=== PATIENT | female | born 2000 | race Caucasian/White ===

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

== ENCOUNTER 2020-10-30 09:52 | Emergency (ER) | payer BC ==
[~2020-10-30] VITALS: Ht 162 cm; Wt 104.3 kg
[2020-10-30] MEDS ORDERED: KETOROLAC 30 MG/ML VIAL IVP STA (10:01)
[2020-10-30] MEDS ORDERED: fentaNYL INJ 100 MCG/2 ML AMP IVP STA (10:01)
[2020-10-30] MEDS ORDERED: LACTATED RINGERS 1,000 ML IV ONE (10:15)
[2020-10-30 10:19] LABS: BASOPHILS # (AUTO) 0.1 10^3/uL (0.0-0.1); BASOPHILS % (AUTO) 1 % (0-10); EOSINOPHILS # (AUTO) 0.2 10^3/uL (0.0-0.3); EOSINOPHILS % (AUTO) 2 % (0-10); HEMATOCRIT 40 % (35-52); HEMOGLOBIN 12.8 g/dL (11.5-16.0); LYMPHOCYTES % (AUTO) 36 % (12-44); MEAN CORPUSCULAR HEMOGLOBIN 30 pg (25-34); MEAN CORPUSCULAR HGB CONC 32 g/dL (32-36); MEAN CORPUSCULAR VOLUME 94 fL (80-99); MEAN PLATELET VOLUME 10.1 fL (9.0-12.2); MONOCYTES # (AUTO) 0.6 10^3/uL (0.0-1.0); MONOCYTES % (AUTO) 5 % (0-12); NEUTROPHILS # (AUTO) 6.2 10^3/uL (1.8-7.8); NEUTROPHILS % (AUTO) 56 % (42-75); PLATELET COUNT 275 10^3/uL (130-400)
--- NOTE | 2020-10-30 10:26 | ED Back Pain ---
General Chief Complaint: Back Problems Stated Complaint: BACK PAIN Source of Information: Patient Exam Limitations: No Limitations History of Present Illness Date Seen by Provider: Oct 30, 2020 Time Seen by Provider: 09:58 Initial Comments Here with report of severe left flank pain that started acutely within the last hour. She has been dealing with a kidney infection this week and has been treating that with drinking more water and drinking cranberry juice. States she believes she had a kidney infection because she was feeling like she had to pee but could not or was and felt like that was happening often. States that she has had kidney stones in the past but has never felt like this. Denies possibility of because they use condoms. Last menstrual period was 1 month ago when she is due currently. Denies nausea, vomiting, fever or other problems. Location: Other (Left flank) Timing/Duration: 1 Hour Severity: Severe Pain/Injury Location: Back Radiation: Other (Left groin) Method of Injury: Unknown Associated Symptoms: No fever, No lower back pain, No loss of bladder control, No loss of bowel control Allergies and Home Medications Allergies Coded Allergies: doxycycline (Verified Allergy, Unknown, 10/30/20) peanut (Verified Allergy, Unknown, 10/30/20) Patient Home Medication List Home Medication List Reviewed: Yes Review of Systems Constitutional: see HPI, chills, fever EENTM: No nose congestion, No throat pain Respiratory: No cough, No short of breath Cardiovascular: no symptoms reported Gastrointestinal: abdominal pain; No nausea, No vomiting Genitourinary: dysuria, frequency, hesitancy Musculoskeletal: back pain; No muscle pain Skin: no symptoms reported Psychiatric/Neurological: Anxiety All Other Systems Reviewed Negative Unless Noted: Yes Past Gmcpwmm-Jfhqfx-Kewilm Hx Past Med/Social Hx: Reviewed Nursing Past Med/Soc Hx Patient Social History Alcohol Use: Denies Use Smoking Status: Never a Smoker Past Medical History Surgeries: No Respiratory: No Cardiac: No Neurological: No : No Genitourinary: Yes Kidney Infection, Kidney Stones Gastrointestinal: No Musculoskeletal: No Cancer: No Psychosocial: Yes Anxiety, Personality Disorder, Depression Family Medical History Reviewed Nursing Family Hx No Pertinent Family Hx Physical Exam Vital Signs Vital Signs - First Documented 10/30/20 09:56 Temp 36.2 Pulse 125 Resp 20 B/P (MAP) 102/87 (92) Pulse Ox 100 Capillary Refill : Height, Weight, BMI Height: '" Weight: lbs. oz. kg; BMI Method: General Appearance: WD/WN, Moderate Distress HEENT: PERRL/EOMI, Pharynx Normal Neck: Non Tender, Supple Cardiovascular: No Murmur, Tachycardia Respiratory: Lungs Clear, Normal Breath Sounds Gastrointestinal: Non Tender, Soft Back: No Vertebral Tenderness, CVA Tenderness (L); No CVA Tenderness (R) Extremity: Normal Inspection, Normal Range of Motion, Non Tender, No Calf Tenderness, No Pedal Edema Neurologic/Psychiatric: Alert, Oriented x3 Skin: Normal Color, Warm/Dry Progress/Results/Core Measures Results/Orders Lab Results Laboratory Tests Test 10/30/20 10:10 10/30/20 10:38 Range/Units White Blood Count 11.0 4.3-11.0 10^3/uL Red Blood Count 4.30 3.80-5.11 10^6/uL Hemoglobin 12.8 11.5-16.0 g/dL Hematocrit 40 35-52 % Mean Corpuscular Volume 94 80-99 fL Mean Corpuscular Hemoglobin 30 25-34 pg Mean Corpuscular Hemoglobin Concent 32 32-36 g/dL Red Cell Distribution Width 12.5 10.0-14.5 % Platelet Count 275 130-400 10^3/uL Mean Platelet Volume 10.1 9.0-12.2 fL Immature Granulocyte % (Auto) 1 % Neutrophils (%) (Auto) 56 42-75 % Lymphocytes (%) (Auto) 36 12-44 % Monocytes (%) (Auto) 5 0-12 % Eosinophils (%) (Auto) 2 0-10 % Basophils (%) (Auto) 1 0-10 % Neutrophils # (Auto) 6.2 1.8-7.8 10^3/uL Lymphocytes # (Auto) 4.0 1.0-4.0 10^3/uL Monocytes # (Auto) 0.6 0.0-1.0 10^3/uL Eosinophils # (Auto) 0.2 0.0-0.3 10^3/uL Basophils # (Auto) 0.1 0.0-0.1 10^3/uL Immature Granulocyte # (Auto) 0.1 0.0-0.1 10^3/uL Sodium Level 137 135-145 MMOL/L Potassium Level 3.6 3.6-5.0 MMOL/L Chloride Level 103 98-107 MMOL/L Carbon Dioxide Level 22 21-32 MMOL/L Anion Gap 12 5-14 MMOL/L Blood Urea Nitrogen 12 7-18 MG/DL Creatinine 0.78 0.60-1.30 MG/DL Estimat Glomerular Filtration Rate > 60 BUN/Creatinine Ratio 15 Glucose Level 124 H 70-105 MG/DL Calcium Level 8.7 8.5-10.1 MG/DL Corrected Calcium 8.5 8.5-10.1 MG/DL Total Bilirubin 0.3 0.1-1.0 MG/DL Aspartate Amino Transf (AST/SGOT) 13 5-34 U/L Alanine Aminotransferase (ALT/SGPT) 14 0-55 U/L Alkaline Phosphatase 97 40-136 U/L C-Reactive Protein High Sensitivity 1.67 H 0.00-0.50 MG/DL Total Protein 7.2 6.4-8.2 GM/DL Albumin 4.2 3.2-4.5 GM/DL Serum Test, Qualitative NEGATIVE NEGATIVE Urine Color YELLOW Urine Clarity SL CLOUDY Urine pH 5.5 5-9 Urine Specific Sunset >=1.030 1.016-1.022 Urine Protein TRACE H NEGATIVE Urine Glucose (UA) NEGATIVE NEGATIVE Urine Ketones NEGATIVE NEGATIVE Urine Nitrite NEGATIVE NEGATIVE Urine Bilirubin NEGATIVE NEGATIVE Urine Urobilinogen 0.2 < = 1.0 MG/DL Urine Leukocyte Esterase NEGATIVE NEGATIVE Urine RBC (Auto) 3+ H NEGATIVE Urine RBC 25-50 H /HPF Urine WBC NONE /HPF Urine Squamous Epithelial Cells 2-5 /HPF Urine Crystals NONE /LPF Urine Bacteria TRACE /HPF Urine Casts PRESENT /LPF Urine Hyaline Casts RARE /LPF Urine Mucus MODERATE H /LPF Urine Culture Indicated NO My Orders Orders - LAURI SPENCER MD Cbc With Automated Diff (10/30/20 10:01) Comprehensive Metabolic Panel (10/30/20 10:01) Hs C Reactive Protein (10/30/20 10:01) Hcg,Qualitative Serum (10/30/20 10:01) Ua Culture If Indicated (10/30/20 10:01) Fentanyl Inj (Sublimaze Injection) (10/30/20 10:01) Ketorolac Injection (Toradol Injection) (10/30/20 10:01) Ed Iv/Invasive Line Start (10/30/20 10:01) Lactated Ringers (Lr 1000 Ml Iv Solution (10/30/20 10:15) Ct Abd/Pelvis Wo(Kidney Stone) (10/30/20 11:23) Medications Given in ED Current Medications Medications Dose Ordered Sig/Estephanie Route Start Time Stop Time Status Last Admin Dose Admin Lactated Ringer's 1,000 ml @ 0 mls/hr Q0M ONCE IV 10/30/20 10:15 10/30/20 10:16 DC 10/30/20 10:17 0 MLS/HR Vital Signs/I&O 10/30/20 09:56 Temp 36.2 Pulse 125 Resp 20 B/P (MAP) 102/87 (92) Pulse Ox 100 Progress Progress Note : Progress Note Seen and evaluated. IV, labs, UA, serum hCG, LR 1 L bolus, fentanyl 50 mcg IV and Toradol 30 mg IV ordered. Monitor patient. 1230: CT report shows stone at the left UVJ which I think is the cause of her pain. No obvious urinary tract infection or other abnormality. She is much more comfortable currently. We will complete her fluid and then discharge. Discharged home with return prec autions. Patient verbalized understanding of instructions and agreement with plan. Diagnostic Imaging Diagonstic Imaging: CT Plain Films/CT/US/NM/MRI: abdomen, pelvis Comments NAME: MALVIN BAUM [facility] REC#: [id number] PT STATUS: REG ER : 2000 PHYSICIAN: LAURI SPENCER MD ADMIT DATE: 10/30/20/ER Draft Date of Exam:10/30/20 CT ABD/PELVIS WO(KIDNEY STONE) PROCEDURE: CT urinary tract, rule out kidney stone. TECHNIQUE: Multiple contiguous axial images were obtained through the abdomen and pelvis without the use of intravenous contrast. Auto Exposure Controls were utilized during the CT exam to meet ALARA standards for radiation dose reduction. INDICATION: Left flank pain No prior examinations are available for comparison. FINDINGS: The heart size is normal. The lung bases are clear. The liver is normal in size and without focal lesions. Gallbladder is unremarkable. There is no biliary ductal dilatation. Spleen is normal. Pancreas and adrenal glands are unremarkable. There are some minimal left hydronephrosis secondary to a 3 to 4 mm stone at the left UVJ. Right kidney is normal. Aorta is nonaneurysmal. The bowel gas pattern is nonspecific. There are multiple mildly enlarged lymph nodes in the right lower quadrant suspect for mesenteric adenitis. There is no free air. There is no ascites. There are no focal inflammatory changes. Bladder is normal. There is no pelvic mass or adenopathy. The osseous structures are unremarkable. IMPRESSION: Mild left hydronephrosis secondary to a 3 to 4 mm stone at the left UVJ. Multiple mildly enlarged lymph nodes in right lower quadrant likely reflecting some degree of mesenteric adenitis. No other acute abnormality in the abdomen or pelvis. Dictated on workstation # [id number] Dict: 10/30/20 1216 Trans: 10/30/20 1231 [facility] [id number] Interpreted by: JOY GOLDSMITH MD Electronically signed by: Departure Impression Primary Impression: Left ureteral stone Disposition: HOME, SELF-CARE Condition: Improved Departure-Patient Inst. Decision time for Depature: 12:37 Referrals: RYAN MONTALVO DO (PCP/Family) Primary Care Physician Patient Instructions: How to Strain Your Urine, Kidney Stones (DC) Add. Discharge Instructions: All discharge instructions reviewed with patient and/or family. Voiced understanding. You should strain your urine. Drink plenty of fluids. You may take Tylenol/acetaminophen 1000 mg every 8 hours as needed for pain if you are not taking the prescribed pain medicine. Do not take both at the same time as they both have acetaminophen in them. You may take ibuprofen 600 mg every 8 hours as needed for pain as well. Take other medications as directed. Follow-up with your doctor for recheck and further evaluation as needed. You may follow-up with the urologist listed or of your choosing for recheck and further evaluation as needed. Return for worse pain, fever, vomiting, weakness or other concerns as needed. Scripts Hydrocodone Bit/Acetaminophen (HYDROcodone/APAP 5 MG/325 MG TAB) 1 Tab Tab 1 TAB PO Q6H for Pain, #8 TAB 0 Refills Prov: LAURI SPENCER MD 10/30/20 Cephalexin (Cephalexin) 500 Mg Capsule 500 MG PO BID for 7 Days, #14 CAP 0 Refills Prov: LAURI SPENCER MD 10/30/20 LAURI SPENCER MD Oct 30, 2020 10:25
[2020-10-30 10:39] LABS: ALBUMIN 4.2 GM/DL (3.2-4.5)
[2020-10-30 10:40] LABS: CHLORIDE 103 MMOL/L (98-107); POTASSIUM 3.6 MMOL/L (3.6-5.0); SODIUM 137 MMOL/L (135-145)
[2020-10-30 10:41] LABS: CALCIUM 8.7 MG/DL (8.5-10.1)
[2020-10-30 10:42] LABS: GLUCOSE 124 MG/DL (70-105); TOTAL PROTEIN 7.2 GM/DL (6.4-8.2)
[2020-10-30 10:43] LABS: CARBON DIOXIDE 22 MMOL/L (21-32)
[2020-10-30 10:44] LABS: BILIRUBIN,TOTAL 0.3 MG/DL (0.1-1.0)
[2020-10-30 10:45] LABS: ALKALINE PHOSPHATASE 97 U/L (40-136)
[2020-10-30 10:46] LABS: CREATININE SERUM 0.78 MG/DL (0.60-1.30); GFR ESTIMATED > 60
[2020-10-30 10:47] LABS: BUN/CREATININE RATIO 15
[2020-10-30 10:49] LABS: ALANINE AMINOTRANSFERASE 14 U/L (0-55)
[2020-10-30 10:56] LABS: BILIRUBIN,URINE NEGATIVE (NEGATIVE); CLARITY,URINE SL CLOUDY; COLOR,URINE YELLOW; GLUCOSE, URINE (UA) NEGATIVE (NEGATIVE); KETONES,URINE NEGATIVE (NEGATIVE); LEUKOCYTE ESTERASE ,URINE NEGATIVE (NEGATIVE); NITRITE,URINE NEGATIVE (NEGATIVE); PH,URINE 5.5 (5-9); PROTEIN,URINE TRACE (NEGATIVE)
[2020-10-30 11:09] LABS: BACTERIA,URINE TRACE /HPF; HYALINE CASTS, URINE RARE /LPF; RBC,URINE 25-50 /HPF
--- NOTE | 2020-10-30 12:32 | Diagnostic Imaging Report ---
PROCEDURE: CT urinary tract, rule out kidney stone. TECHNIQUE: Multiple contiguous axial images were obtained through the abdomen and pelvis without the use of intravenous contrast. Auto Exposure Controls were utilized during the CT exam to meet ALARA standards for radiation dose reduction. INDICATION: Left flank pain No prior examinations are available for comparison. FINDINGS: The heart size is normal. The lung bases are clear. The liver is normal in size and without focal lesions. Gallbladder is unremarkable. There is no biliary ductal dilatation. Spleen is normal. Pancreas and adrenal glands are unremarkable. There are some minimal left hydronephrosis secondary to a 3 to 4 mm stone at the left UVJ. Right kidney is normal. Aorta is nonaneurysmal. The bowel gas pattern is nonspecific. There are multiple mildly enlarged lymph nodes in the right lower quadrant suspect for mesenteric adenitis. There is no free air. There is no ascites. There are no focal inflammatory changes. Bladder is normal. There is no pelvic mass or adenopathy. The osseous structures are unremarkable. IMPRESSION: Mild left hydronephrosis secondary to a 3 to 4 mm stone at the left UVJ. Multiple mildly enlarged lymph nodes in right lower quadrant likely reflecting some degree of mesenteric adenitis. No other acute abnormality in the abdomen or pelvis. Dictated by: Dictated on workstation # [id number]
[2020-10-30] MEDS ORDERED: ACHD5005 PO (12:40)
[2020-10-30] MEDS ORDERED: CEPH500C PO (12:40)
[2020-10-30 13:23] VITALS: BP 117/84
== END 2020-10-30 13:23 | disposition home or self-care (01) ==
LOC: EDUNIT# 09:52 → ER 09:54
DX: N13.2 Hydronephrosis with renal and ureteral calculous obstruction (principal); Z88.1 Allergy status to other antibiotic agents
CPT/HCPCS: 36415; 74176; 80053; 81000; 84703; 85025; 86141

== ENCOUNTER 2021-06-27 05:28 | Outpatient (RCR) | payer BC ==
[~2021-06-27] VITALS: Ht 165.1 cm; Wt 104.5 kg
[~2021-06-27 05:28] MED LIST: ACHD5005 PO; CEPH500C PO
== END 2021-06-27 09:59 | disposition home or self-care (01) ==
LOC: PREOP 05:28
PROVIDERS: ATTEND Otolaryngology Otolaryngology/Facial Plastic Surgery
DX: Z01.812 Encounter for preprocedural laboratory examination (principal); J35.3 Hypertrophy of tonsils with hypertrophy of adenoids; Z20.822 Contact with and (suspected) exposure to COVID-19
CPT/HCPCS: 87635

== ENCOUNTER 2021-06-29 06:58 | Day surgery (SDC) | payer BC ==
[2021-06-29] VITALS (11 sets, daily range): BP systolic 97–143; BP diastolic 45–89
[~2021-06-29] VITALS: Ht 165.1 cm; Wt 104.5 kg
[2021-06-29] MEDS ORDERED: LACTATED RINGERS 1,000 ML IV PRN (07:15)
[2021-06-29] MEDS ORDERED: SEVOFLURANE (ULTANE) 15 ML INHAL SOLN ONE ×2 (07:40→08:35)
[2021-06-29] MEDS ORDERED: MIDAZOLAM 2 MG/2 ML (VERSED) VIAL ONE (07:40)
[2021-06-29] MEDS ORDERED: ONDANSETRON 4 MG/2 ML (SDV) Z0FRAN ONE (07:40)
[2021-06-29] MEDS ORDERED: proPOfol 200 MG/20 ML (DIPRIVAN) VIAL IV ONE ×2 (07:40→08:28)
[2021-06-29] MEDS ORDERED: fentaNYL INJ 100 MCG/2 ML AMP ONE (07:40)
[2021-06-29] MEDS ORDERED: LIDOCAINE PF 2% 5 ML (XYLOCAINE) VIAL ONE (07:40)
[2021-06-29] MEDS ORDERED: LIDOCAINE JELLY 2% 6 ML SYRINGE ONE (07:44)
[2021-06-29] MEDS ORDERED: MIDAZOLAM 2 MG/2 ML (VERSED) VIAL IVP ONE (07:45)
[2021-06-29 07:51] LABS: BASOPHILS # (AUTO) 0.1 10^3/uL (0.0-0.1); BASOPHILS % (AUTO) 0 % (0-10); EOSINOPHILS # (AUTO) 0.2 10^3/uL (0.0-0.3); EOSINOPHILS % (AUTO) 2 % (0-10); HEMATOCRIT 41 % (35-52); HEMOGLOBIN 13.2 g/dL (11.5-16.0); LYMPHOCYTES # (AUTO) 3.8 10^3/uL (1.0-4.0); LYMPHOCYTES % (AUTO) 31 % (12-44); MEAN CORPUSCULAR HEMOGLOBIN 28 pg (25-34); MEAN CORPUSCULAR HGB CONC 32 g/dL (32-36); MEAN CORPUSCULAR VOLUME 88 fL (80-99); MEAN PLATELET VOLUME 10.2 fL (9.0-12.2); MONOCYTES # (AUTO) 0.7 10^3/uL (0.0-1.0); MONOCYTES % (AUTO) 5 % (0-12); NEUTROPHILS # (AUTO) 7.6 10^3/uL (1.8-7.8); NEUTROPHILS % (AUTO) 61 % (42-75); PLATELET COUNT 324 10^3/uL (130-400); WHITE BLOOD COUNT 12.5 10^3/uL (4.3-11.0)
--- NOTE | 2021-06-29 08:12 | Progress Note-Pre Operative ---
Pre-Operative Progress Note H&P Reviewed The H&P was reviewed, patient examined and no changes noted. Date Seen by Provider: Jun 29, 2021 Time Seen by Provider: 07:30 Date H&P Reviewed: Jun 29, 2021 Time H&P Reviewed: 07:30 Pre-Operative Diagnosis: Tonsillar Hypertrophy, Chornic Tonsil Stones BOONE MONROE MD Jun 29, 2021 08:12
--- NOTE | 2021-06-29 08:14 | Progress Note-Post Operative ---
Post-Operative Progess Note Surgeon (s)/Oil Field Laborer (s) Surgeon BOONE MONROE MD Oil Field Laborer n/a Pre-Operative Diagnosis Tonsillar Hypertrophy, Chornic Tonsil Stones Post-Operative Diagnosis same Post-Op Procedure Note Date of Procedure: Jun 29, 2021 Name of Procedure Performed: Tonsillectomy Description & Findings Description and Findings: n/a Anesthesia Type get Estimated Blood Loss minimal Packing none. Specimen(s) collected/removed tonsils BOONE MONROE MD Jun 29, 2021 08:14
[2021-06-29] MEDS ORDERED: APAP 325 MG/10.15 ML LIQ (TYLENOL) UDC PO PRN (08:15)
[2021-06-29] MEDS ORDERED: NS IV 1000 ML 1,000 ML IV SCH (08:15)
[2021-06-29] MEDS ORDERED: HYDROcodone/APAP 7.5MG-325 MG/15 ML (LORTAB) UDC PO PRN (08:15)
[2021-06-29] MEDS ORDERED: morphine INJ 10 MG/ML 1ML (SYR OR VIAL) IVP ONE (08:45)
[2021-06-29] MEDS ORDERED: MEPERIDINE (DEMEROL) INJ 50 MG/ML IVP ONE (08:45)
[2021-06-29] MEDS ORDERED: PROMETHAZINE INJ 25 MG/ML (PHENERGAN) AMP IVP ONE (08:45)
[2021-06-29] MEDS ORDERED: ONDANSETRON 4 MG/2 ML (SDV) Z0FRAN IVP PRN (08:45)
[2021-06-29] MEDS ORDERED: morphine INJ 10 MG/ML 1ML (SYR OR VIAL) ONE (08:52)
[2021-06-29] MEDS ORDERED: AMOX250S5 PO (09:53)
[2021-06-29] MEDS ORDERED: TETRACAINESUCKERS MT (09:53)
[2021-06-29] MEDS ORDERED: HYDR15SO8 PO (09:53)
[2021-06-29] MEDS ORDERED: DEXAINTSOL PO (09:53)
--- NOTE | 2021-06-29 10:14 | Anesthesia-General Post-Op ---
General Patient Condition Mental Status/LOC: Same as Preop Cardiovascular: Satisfactory Nausea/Vomiting: Absent Respiratory: Satisfactory Pain: Controlled Complications: Absent Post Op Complications Complications None Follow Up Care/Instructions Patient Instructions None needed. Anesthesia/Patient Condition Patient Condition Patient is doing well, no complaints, stable vital signs, no apparent adverse anesthesia problems. No complications reported per nursing. FARHAT DEL TORO CRNA Jun 29, 2021 10:14
== END 2021-06-29 11:28 | disposition home or self-care (01) ==
LOC: SDC 06:58
PROVIDERS: ATTEND Otolaryngology Otolaryngology/Facial Plastic Surgery
DX: J35.01 Chronic tonsillitis (principal); G47.9 Sleep disorder, unspecified; R06.83 Snoring; F32.A Depression, unspecified; Z79.899 Other long term (current) drug therapy; Z11.2 Encounter for screening for other bacterial diseases
CPT/HCPCS: 36415; 84703; 85025; 87081; 88304

== ENCOUNTER 2021-07-19 00:49 | Emergency (ER) | payer BC ==
[~2021-07-19] VITALS: Ht 165 cm; Wt 100.0 kg
[~2021-07-19 00:49] MED LIST changes: +AMOX250S5 PO; +DEXAINTSOL PO; +HYDR15SO8 PO; +TETRACAINESUCKERS MT
[2021-07-19] MEDS ORDERED: KETOROLAC 30 MG/ML VIAL IVP STA (00:57)
[2021-07-19] MEDS ORDERED: diphenhydrAMINE 50 MG/ML INJ (BENADRYL) IV STA (00:57)
--- NOTE | 2021-07-19 01:10 | ED Chest Pain ---
General Chief Complaint: Chest Pain Stated Complaint: CHEST PAIN Nursing Triage Note: Patient presented to the ER tonight with complaints of chest pain. She advised that she has a hx. of anxiety and pain is reproducable upon palpation. Source: patient History of Present Illness Date Seen by Provider: Jul 19, 2021 Time Seen by Provider: 00:50 Initial Comments PT ARRIVES VIA POV FROM HOME. STATES HER BOYFRIEND BROUGHT HER HERE C/O LEFT UPPER CHEST PAIN--BEGAN 30 MINUTES PRIOR TO ARRIVAL, SITTING DOWN GETTING READY TO GO TO BED C/O SHORTNESS OF BREATH NO COUGH NO FEVER OR RECENT ILLNESS STATES SHE HAS A HISTORY OF ANXIETY AND PANIC ATTACKS HAS BEEN OUT OF HER ANXIETY MEDICATION FOR 2 WEEKS--HYDROXYZINE DENIES ANY RECENT STRESSORS OR PROBLEMS WITH BOYFRIEND, ETC. HAD TONSILS REMOVED 3 WEEKS AGO LMP 06/20/21. NORMAL. NO CONTROL PCP: [facility] Allergies and Home Medications Allergies Coded Allergies: doxycycline (Verified Allergy, Unknown, 06/22/21) peanut (Verified Allergy, Unknown, Anaphylaxis, 06/22/21) Patient Home Medication List Home Medication List Reviewed: Yes Amoxicillin (Amoxicillin) 250 Mg/5 Ml Susp, 2 TSP PO BID Prescribed by: JI MICHAELS on 06/29/21 09 Dexamethasone (Decadron Intensol Oral Solution (Repackaging)) 1 Mg/1 Ml Sarah Beth, 2 TSP PO DAILY PRN for PAIN Prescribed by: JI MICHAELS on 06/29/21 09 Hydrocodone/Acetaminophen (Hydrocodon-Acetamin 7.5-325/15 ML) 15 Ml Solution, 2- 3 TSP PO Q4H Prescribed by: JI MICHAELS on 06/29/21 09 Tetracaine (Tetracaine Suckers) Sherri Ea, 1 EA MT UD PRN for PAIN Prescribed by: JI MICHAELS on 06/29/21952 Review of Systems Review of Systems Constitutional: no symptoms reported Respiratory: See HPI Cardiovascular: See HPI Gastrointestinal: No Symptoms Reported Genitourinary: No Symptoms Reported Musculoskeletal: no symptoms reported Skin: no symptoms reported Psychiatric/Neurological: See HPI Endocrine: No Symptoms Reported Hematologic/Lymphatic: No Symptoms Reported Past Lokbupg-Ordsav-[id number] Hx Patient Social History Tobacco Use?: No Substance use?: No Alcohol Use?: No Immunizations Up To Date First/Initial COVID19 Vaccinat: OCTOBER 2020 Second COVID19 Vaccination Cedric: NOVEMBER 2020 Third COVID19 Vaccination Date: OCTOBER 2020 Seasonal Allergies Seasonal Allergies: Yes Past Medical History Surgery/Hospitalization HX: anxiety, thyroid Surgeries: Yes (LEFT WRIST SURGERY ; TONSILLECTOMY) Orthopedic, Tonsillectomy Respiratory: No Currently Using CPAP: No Currently Using BIPAP: No Cardiac: No Neurological: Yes Headaches /Migraines Last Menstrual Period: Jun 20, 2021 Female Reproductive Disorders: Denies Genitourinary: Yes Kidney Infection, Kidney Stones Gastrointestinal: Yes Gastroesophageal Reflux Musculoskeletal: Yes (LEFT WRIST FX/SURGERY) Fractures Endocrine: Yes (OBESITY) Hypothyroidsim HEENT: Yes Tonsilitis Cancer: No Psychosocial: Yes Anxiety, PTSD, Personality Disorder, Depression Integumentary: No Blood Disorders: No Adverse Reaction/Blood Tranf: No Family Medical History No Pertinent Family Hx Physical Exam Vital Signs Vital Signs - First Documented 07/19/21 00:52 Pulse 93 Resp 18 B/P (MAP) 139/93 (108) Pulse Ox 98 O2 Delivery Room Air Capillary Refill : Less Than 3 Seconds Height, Weight, BMI Height: '" Weight: lbs. oz. 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 as Tested Skin: Normal Color, Warm/Dry Progress/Results/Core Measures Results/Orders Lab Results Laboratory Tests Test 07/19/21 01:11 07/19/21 01:35 Range/Units White Blood Count 13.4 H 4.3-11.0 10^3/uL Red Blood Count 4.62 3.80-5.11 10^6/uL Hemoglobin 13.1 11.5-16.0 g/dL Hematocrit 41 35-52 % Mean Corpuscular Volume 89 80-99 fL Mean Corpuscular Hemoglobin 28 25-34 pg Mean Corpuscular Hemoglobin Concent 32 32-36 g/dL Red Cell Distribution Width 13.3 10.0-14.5 % Platelet Count 359 130-400 10^3/uL Mean Platelet Volume 10.0 9.0-12.2 fL Immature Granulocyte % (Auto) 0 % Neutrophils (%) (Auto) 61 42-75 % Lymphocytes (%) (Auto) 32 12-44 % Monocytes (%) (Auto) 5 0-12 % Eosinophils (%) (Auto) 1 0-10 % Basophils (%) (Auto) 0 0-10 % Neutrophils # (Auto) 8.1 H 1.8-7.8 10^3/uL Lymphocytes # (Auto) 4.3 H 1.0-4.0 10^3/uL Monocytes # (Auto) 0.7 0.0-1.0 10^3/uL Eosinophils # (Auto) 0.2 0.0-0.3 10^3/uL Basophils # (Auto) 0.1 0.0-0.1 10^3/uL Immature Granulocyte # (Auto) 0.0 0.0-0.1 10^3/uL Sodium Level 141 135-145 MMOL/L Potassium Level 4.1 3.6-5.0 MMOL/L Chloride Level 105 98-107 MMOL/L Carbon Dioxide Level 23 21-32 MMOL/L Anion Gap 13 5-14 MMOL/L Blood Urea Nitrogen 11 7-18 MG/DL Creatinine 0.79 0.60-1.30 MG/DL Estimat Glomerular Filtration Rate 92 BUN/Creatinine Ratio 14 Glucose Level 92 70-105 MG/DL Calcium Level 9.2 8.5-10.1 MG/DL Corrected Calcium 9.0 8.5-10.1 MG/DL Magnesium Level 2.2 1.6-2.4 MG/DL Total Bilirubin 0.2 0.1-1.0 MG/DL Aspartate Amino Transf (AST/SGOT) 18 5-34 U/L Alanine Aminotransferase (ALT/SGPT) 20 0-55 U/L Alkaline Phosphatase 99 40-136 U/L Myoglobin 19.7 10.0-92.0 NG/ML Troponin I < 0.028 <0.028 NG/ML B-Type Natriuretic Peptide < 10.0 <100.0 PG/ML Total Protein 7.9 6.4-8.2 GM/DL Albumin 4.2 3.2-4.5 GM/DL Amylase Level 50 25-125 U/L Lipase 26 8-78 U/L Serum Test, Qualitative NEGATIVE NEGATIVE Serum Alcohol < 10 <10 MG/DL Urine Color YELLOW Urine Clarity CLEAR Urine pH 6.0 5-9 Urine Specific [place] >=1.030 1.016-1.022 Urine Protein NEGATIVE NEGATIVE Urine Glucose (UA) NEGATIVE NEGATIVE Urine Ketones NEGATIVE NEGATIVE Urine Nitrite NEGATIVE NEGATIVE Urine Bilirubin NEGATIVE NEGATIVE Urine Urobilinogen 0.2 < = 1.0 MG/DL Urine Leukocyte Esterase NEGATIVE NEGATIVE Urine RBC (Auto) NEGATIVE NEGATIVE Urine RBC NONE /HPF Urine WBC NONE /HPF Urine Squamous Epithelial Cells 5-10 /HPF Urine Crystals NONE /LPF Urine Bacteria TRACE /HPF Urine Casts NONE /LPF Urine Mucus LARGE H /LPF Urine Culture Indicated NO Urine Opiates Screen NEGATIVE NEGATIVE Urine Oxycodone Screen NEGATIVE NEGATIVE Urine Methadone Screen NEGATIVE NEGATIVE Urine Propoxyphene Screen NEGATIVE NEGATIVE Urine Barbiturates Screen NEGATIVE NEGATIVE Ur Tricyclic Antidepressants Screen NEGATIVE NEGATIVE Urine Phencyclidine Screen NEGATIVE NEGATIVE Urine Amphetamines Screen NEGATIVE NEGATIVE Urine Methamphetamines Screen NEGATIVE NEGATIVE Urine Benzodiazepines Screen NEGATIVE NEGATIVE Urine Cocaine Screen NEGATIVE NEGATIVE Urine Cannabinoids Screen NEGATIVE NEGATIVE My Orders Orders - GORDON BRADLEY K DO Cbc With Automated Diff (07/19/21 00:57) Magnesium (07/19/21 00:57) Chest 1 View, Ap/Pa Only (07/19/21 00:57) Ekg Tracing (07/19/21 00:57) Comprehensive Metabolic Panel (07/19/21 00:57) Myoglobin Serum (07/19/21 00:57) O2 (07/19/21 00:57) Monitor-Rhythm Ecg Trace Only (07/19/21 00:57) Ed Iv/Invasive Line Start (07/19/21 00:57) Lipase (07/19/21 00:57) Amylase (07/19/21 00:57) Bnp Jess (07/19/21 00:57) Troponin I [place] (07/19/21 00:57) Alcohol (07/19/21 00:57) Drug Screen Stat (Urine) (07/19/21 00:57) Hcg,Qualitative Serum (07/19/21 00:57) Ua Culture If Indicated (07/19/21 00:57) Ketorolac Injection (Toradol Injection) (07/19/21 00:57) Diphenhydramine Injection (Benadryl Inje (07/19/21 00:57) Vital Signs/I&O 07/19/21 07/19/21 07/19/21 00:52 00:59 02:13 Pulse 93 81 Resp 18 18 B/P (MAP) 139/93 (108) 119/70 Pulse Ox 98 98 98 O2 Delivery Room Air Room Air Room Air Blood Pressure Mean: 108 Progress Progress Note : Progress Note PT BEGAN CRYING UNCONTROLLABLY AND HYPERVENTILATING EVEN MORE GIVEN TORADOL AND BENADRYL WITH COMPLETE RESOLUTION OF SYMPTOMS BOYFRIEND LATER COMES INTO ROOM PT AND BOYFRIEND BOTH CRYING AT DISMISSAL Initial ECG Impression Date: Jul 19, 2021 Initial ECG Impression Time: 00:51 Initial ECG Rate: 93 Initial ECG Rhythm: Normal Sinus Diagnostic Imaging Comments CXR--NO ACUTE PROCESS, PENDING RADIOLOGIST REVIEW Reviewed: Reviewed by Me Departure Impression Primary Impression: Chest wall pain Additional Impression: Anxiety Disposition: 01 HOME, SELF-CARE Condition: Stable Departure-Patient Inst. Decision time for Depature: 02:00 Referrals: RYAN MONTALVO DO (PCP/Family) Primary Care Physician Patient Instructions: Chest Pain That Is Not Caused by the Heart (DC), Anxiety, Adult ED Add. Discharge Instructions: GET YOUR ANXIETY MEDICATION FILLED AND TAKE DIRECTED TYLENOL AND MOTRIN NEEDED FOR PAIN MOIST HEAT TO SORE AREA AT 20 MINUTE INTERVALS FOLLOW UP WITH YOUR DR NEEDED All discharge instructions reviewed with patient and/or family. Voiced understanding. GORDON BRADLEY DO Jul 19, 2021 01:10
[2021-07-19 01:18] LABS: BASOPHILS # (AUTO) 0.1 10^3/uL (0.0-0.1); BASOPHILS % (AUTO) 0 % (0-10); EOSINOPHILS # (AUTO) 0.2 10^3/uL (0.0-0.3); EOSINOPHILS % (AUTO) 1 % (0-10); HEMATOCRIT 41 % (35-52); HEMOGLOBIN 13.1 g/dL (11.5-16.0); LYMPHOCYTES # (AUTO) 4.3 10^3/uL (1.0-4.0); LYMPHOCYTES % (AUTO) 32 % (12-44); MEAN CORPUSCULAR HEMOGLOBIN 28 pg (25-34); MEAN CORPUSCULAR HGB CONC 32 g/dL (32-36); MEAN CORPUSCULAR VOLUME 89 fL (80-99); MONOCYTES # (AUTO) 0.7 10^3/uL (0.0-1.0); MONOCYTES % (AUTO) 5 % (0-12); NEUTROPHILS # (AUTO) 8.1 10^3/uL (1.8-7.8); NEUTROPHILS % (AUTO) 61 % (42-75); PLATELET COUNT 359 10^3/uL (130-400); WHITE BLOOD COUNT 13.4 10^3/uL (4.3-11.0)
[2021-07-19 01:25] LABS: ALBUMIN 4.2 GM/DL (3.2-4.5)
[2021-07-19 01:26] LABS: POTASSIUM 4.1 MMOL/L (3.6-5.0)
[2021-07-19 01:27] LABS: CALCIUM 9.2 MG/DL (8.5-10.1)
[2021-07-19 01:28] LABS: TOTAL PROTEIN 7.9 GM/DL (6.4-8.2)
[2021-07-19 01:30] LABS: BILIRUBIN,TOTAL 0.2 MG/DL (0.1-1.0)
[2021-07-19 01:32] LABS: CREATININE SERUM 0.79 MG/DL (0.60-1.30)
[2021-07-19 01:34] LABS: MAGNESIUM 2.2 MG/DL (1.6-2.4)
[2021-07-19 01:48] LABS: BILIRUBIN,URINE NEGATIVE (NEGATIVE); CLARITY,URINE CLEAR; COLOR,URINE YELLOW; GLUCOSE, URINE (UA) NEGATIVE (NEGATIVE); KETONES,URINE NEGATIVE (NEGATIVE); LEUKOCYTE ESTERASE ,URINE NEGATIVE (NEGATIVE); NITRITE,URINE NEGATIVE (NEGATIVE); PROTEIN,URINE NEGATIVE (NEGATIVE)
[2021-07-19 01:57] LABS: BACTERIA,URINE TRACE /HPF
[2021-07-19 02:13] VITALS: BP 119/70
[2021-07-19 02:15] LABS: AMPHETAMINE SCREEN, URINE NEGATIVE (NEGATIVE); BARBITURATE SCREEN URINE NEGATIVE (NEGATIVE); BENZODIAZEPINES SCREEN URINE NEGATIVE (NEGATIVE); CANNABINOID SCREEN, URINE NEGATIVE (NEGATIVE); COCAINE SCREEN URINE NEGATIVE (NEGATIVE); METHADONE STAT NEGATIVE (NEGATIVE); METHAMPHETAMINE SCREEN URINE S NEGATIVE (NEGATIVE); OPIATE SCREEN URINE NEGATIVE (NEGATIVE); OXYCODONE STAT NEGATIVE (NEGATIVE); PROPOXYPHENE STAT NEGATIVE (NEGATIVE); TRICYCLIC ANTIDEPRESSANTS SCRE NEGATIVE (NEGATIVE)
--- NOTE | 2021-07-19 04:29 | Diagnostic Imaging Report ---
Indication: Chest pain Portable chest 1:31 AM Heart size and pulmonary vascularity are normal. Lungs are clear. There are no effusions or pneumothoraces. IMPRESSION: No acute abnormalities in the chest Dictated by: Dictated on workstation # [id number]
== END 2021-07-19 02:14 | disposition home or self-care (01) ==
LOC: EDUNIT# 00:49 → ER 00:52
DX: R07.89 Other chest pain (principal); F41.0 Panic disorder [episodic paroxysmal anxiety]; E66.9 Obesity, unspecified; Z88.1 Allergy status to other antibiotic agents; Z32.02 Encounter for pregnancy test, result negative
CPT/HCPCS: 71045; 80053; 80306; 81000; 82150; 83690; 83735; 83874; 83880; 84484; 84703; 85025; 93005; 93041; 99284; G0480; 36415; 80320